=== PATIENT | female | born 1980 | race Caucasian/White ===

== ENCOUNTER 2021-01-11 08:35 | Outpatient (REF) | payer OTHER, SELFPAY ==
[2021-01-11 13:43] LABS: CT PCR NOT DETECTED (Not Detect.); NG PCR NOT DETECTED (Not Detect.)
[2021-01-12 08:41] LABS: BV Int Neg Control Negative (Negative); BV Int Pos Control Positive (Positive)
[2021-01-17 09:41] LABS: HPV 16 RNA DETECTED (NOT DETECTED); HPV mRNA E6/E7 rflx Detected (Not Detected)
== END 2021-01-11 08:36 | disposition home or self-care (01) ==
LOC: HO.LAB 08:35
PROVIDERS: PCP Internal Medicine; Visit Provider Advanced Practice Midwife
DX: Z30.432 Encounter for removal of intrauterine contraceptive device (principal); R10.2 Pelvic and perineal pain; R35.89 Other polyuria
CPT/HCPCS: 58301; 87480; 87491; 87510; 87591; 87624; 87625; 87660; 88142

== ENCOUNTER 2021-01-29 16:02 | Outpatient (REF) | payer OTHER, SELFPAY ==
--- NOTE | ~2021-01-29 | US_ITS ---
EXAMINATION: US PELVIS CLINICAL INFORMATION: Pelvic and perineal pain. COMPARISON: None. TECHNIQUE: Ultrasound of the pelvis is performed using both transabdominal and transvaginal transducers along with Doppler. Transvaginal imaging is performed due to inadequate visualization transabdominally. FINDINGS: Uterus: The uterus is anteverted and measures 9.1 cm in length, 5.4 cm in AP and 6.9 cm in transverse dimension. The double wall endometrial thickness is 0.78 mm. There is trace free fluid seen within the endometrial canal. The uterus is smooth in contour and has normal myometrial echogenicity. No visible fibroid. Adnexa: Both ovaries are visualized. There is normal color flow to the adnexa. There is no ovarian torsion. There is no pelvic ascites or fluid collection. Right ovary measures 2.9 x 2.0 x 1.7 cm and volume 5.4 mL. There is a solitary echogenic calcification in the right ovary. Left ovary measures 3.2 x 2.1 x 1.7 cm and volume 6.0 mL. There is an anechoic simple cyst measuring 1.2 x 0.8 x 1.1 cm. There is no free fluid in the cul-de-sac. US/US pelvic and transvaginal IMPRESSION: Simple cyst in the left ovary. Solitary calcification in the right ovary. Trace fluid seen within the endometrial canal.
== END 2021-01-29 16:03 | disposition home or self-care (01) ==
LOC: HO.US 16:02
PROVIDERS: Visit Provider Advanced Practice Midwife
DX: R10.2 Pelvic and perineal pain (principal)
CPT/HCPCS: 76830; 76856

== ENCOUNTER → 2021-02-05 11:17 | Outpatient (BNVA) | payer OTHER, SELFPAY | PROVIDERS: PCP Internal Medicine; Visit Provider Advanced Practice Midwife ==

== ENCOUNTER 2021-03-14 15:06 | Outpatient (REF) | payer OTHER, SELFPAY | END 2021-03-14 15:07 | disposition home or self-care (01) | LOC: HO.LAB 15:06 | PROVIDERS: PCP Internal Medicine; Visit Provider Obstetrics & Gynecology | DX: R87.610 Atypical squamous cells of undetermined significance on cytologic smear of cervix (ASC-US) (principal); R87.810 Cervical high risk human papillomavirus (HPV) DNA test positive | CPT/HCPCS: 57454; 88305; 88341; 88342; 88360 ==

== ENCOUNTER 2021-03-19 16:29 | Outpatient (REF) | payer OTHER, SELFPAY ==
--- NOTE | ~2021-03-19 | MM_ITS ---
EXAMINATION: MM SCREENING DIGITAL BREAST TOMOSYNTHESIS, BILATERAL CLINICAL INFORMATION: Screening. Asymptomatic. Age 41. No prior breast imaging. No known family history breast cancer. The lifetime risk of breast cancer based on the Tyrer-Cuzick Model is 7%. COMPARISON: None (current study represents initial baseline exam). TECHNIQUE: Digital breast tomosynthesis is performed in both the craniocaudal and mediolateral oblique views along with computer-aided detection (CAD). Synthesized 2D images are generated from the tomosynthesis. FINDINGS: There are scattered areas of fibroglandular density (ACR BI-RADS breast composition Category b). There is fine fibronodular parenchymal pattern with scattered benign asymmetries. Breast parenchymal composition borders on heterogeneously dense. There is no significant mass or architectural abnormality. No abnormal calcifications. The axilla and skin contours are unremarkable. MM/MM tomosynthesis screening BI IMPRESSION: No mammographic evidence of malignancy. ASSESSMENT: BI-RADS 2: Benign RECOMMENDATION: Routine annual mammography screening. This patient's information was entered into a reminder system with a target due date for their next mammogram.
== END 2021-03-19 16:30 | disposition home or self-care (01) ==
LOC: HO.MAMMO 16:29
PROVIDERS: PCP Internal Medicine; Visit Provider Advanced Practice Midwife
DX: Z12.31 Encounter for screening mammogram for malignant neoplasm of breast (principal)
CPT/HCPCS: 77063; 77067

== ENCOUNTER → 2021-03-26 11:19 | Outpatient (BNVA) | payer OTHER, SELFPAY | PROVIDERS: Visit Provider Obstetrics & Gynecology ==

== ENCOUNTER 2022-05-28 15:29 | Outpatient (REF) | payer OTHER, SELFPAY ==
[2022-05-29 10:26] LABS: CT PCR NOT DETECTED (Not Detect.); NG PCR NOT DETECTED (Not Detect.)
[2022-05-29 13:06] LABS: BV Int Neg Control Negative (Negative); BV Int Pos Control Positive (Positive)
== END 2022-05-28 15:30 | disposition home or self-care (01) ==
LOC: HO.LAB 15:29
PROVIDERS: Visit Provider Advanced Practice Midwife
DX: R10.2 Pelvic and perineal pain (principal); N85.2 Hypertrophy of uterus; Z85.41 Personal history of malignant neoplasm of cervix uteri; Z20.2 Contact with and (suspected) exposure to infections with a predominantly sexual mode of transmission
CPT/HCPCS: 0353U; 87480; 87510; 87660

== ENCOUNTER 2022-05-28 15:53 | Outpatient (REF) | payer OTHER, SELFPAY ==
[2022-06-01 08:54] LABS: HPV mRNA E6/E7 rflx Not Detected (Not Detected)
== END 2022-05-28 15:54 | disposition home or self-care (01) ==
LOC: HO.LNP 15:53
PROVIDERS: Visit Provider Advanced Practice Midwife
DX: Z01.419 Encounter for gynecological examination (general) (routine) without abnormal findings (principal)
CPT/HCPCS: 87624; 88142

== ENCOUNTER 2022-06-27 15:40 | Outpatient (REF) | payer OTHER, SELFPAY ==
--- NOTE | ~2022-06-27 | US_ITS ---
EXAMINATION: US PELVIS CLINICAL INFORMATION: Pelvic and perineal pain; the last menstrual period was on 06/13/2022. COMPARISON: Pelvic ultrasound dated 01/29/2021. TECHNIQUE: Ultrasound of the pelvis is performed using both transabdominal and transvaginal transducers along with Doppler. Transvaginal imaging is performed due to inadequate visualization transabdominally. FINDINGS: The uterus is of normal size and echogenicity, measuring 9.5 x 5.1 x 6.4 cm. A regular homogeneous endometrium is identified measuring 0.8 cm. Nabothian cysts are seen FIBROIDS: There is 1 fibroid seen. 1. Location: Upper rightward uterine body. Size: 1.0 x 0.7 x 0.9 cm. Fibroid characteristics: Heterogeneously hypoechoic. Both ovaries are of normal size and echogenicity. The right ovary measures 4.3 x 2.3 x 2.2 cm for a volume of 11.3 mL. Within the right ovary, a 1.4 cm dominant follicle is noted. The left ovary measures 4.1 x 1.7 x 1.6 cm for a volume of 5.8 mL. There are small left ovarian calcifications, the largest measuring 2 mm. There is no pelvic free fluid. No adnexal mass is seen. US/US pelvic and transvaginal IMPRESSION: 1. A small uterine fibroid is seen. 2. Nabothian cysts are seen within the cervix. 3. Within the right ovary, a 1.4 cm dominant follicle is noted. 4. Small left ovarian calcifications are noted, possibly psammomatous calcifications, sequela of prior infection/inflammation or calcifications related to dermoid tumor formation.
== END 2022-06-27 15:41 | disposition home or self-care (01) ==
LOC: HO.US 15:40
PROVIDERS: PCP Internal Medicine; Visit Provider Advanced Practice Midwife
DX: R10.2 Pelvic and perineal pain (principal); N85.2 Hypertrophy of uterus
CPT/HCPCS: 76830; 76856

== ENCOUNTER → 2022-07-03 14:57 | Outpatient (BNVA) | payer OTHER, SELFPAY | PROVIDERS: PCP Internal Medicine; Visit Provider Advanced Practice Midwife ==

== ENCOUNTER 2022-07-04 12:52 | Outpatient (REF) | payer OTHER, SELFPAY ==
[2022-07-06 17:19] LABS: CA-125 47 U/mL (<35)
== END 2022-07-04 12:53 | disposition home or self-care (01) ==
LOC: HO.LAB 12:52
PROVIDERS: PCP Internal Medicine; Visit Provider Advanced Practice Midwife
DX: D21.9 Benign neoplasm of connective and other soft tissue, unspecified (principal)
CPT/HCPCS: 36415; 86304

== ENCOUNTER 2022-09-05 08:37 | Outpatient (REF) | payer OTHER, SELFPAY ==
--- NOTE | ~2022-09-05 | MR_ITS ---
EXAMINATION: MRI PELVIS WITH AND WITHOUT CONTRAST CLINICAL INFORMATION: Reason for Exam N83.8 - Other noninflammatory disorders of ovary, fallopian tube and bro... COMPARISON: 06/27/2022 and 01/29/2021 TECHNIQUE: Multiple routine MRI sequences through the pelvis were obtained on a high-field 1.5 Sofia MRI before and after the uneventful administration of 5.5 mL of Gadavist gadolinium-based IV contrast. FINDINGS: UTERUS: The uterus is retroverted. The uterus measures 7.5 x 4.6 x 6.7 cm. The endometrial stripe measures up to 8 mm in thickness. There is thickening of the junctional zone up to 12 mm. Focal masslike area within the junctional zone at the anterior aspect measures 1.6 x 1.6 x 1.7 cm with mass effect on the endometrium. Possible small right posterior intramural fibroid measures 8 x 9 x 8 mm. CERVIX: Susceptibility artifact. VAGINA: Unremarkable. RIGHT OVARY: Unremarkable. LEFT OVARY: Unremarkable. KIDNEYS: Two normally positioned kidneys are seen. No hydronephrosis. BLADDER: Underdistended. PELVIC FREE FLUID: Small free fluid. LYMPH NODES: No bulky pelvic lymphadenopathy. MR/MR pelvis wo/w con IMPRESSION: Uterine adenomyosis. Possible focal adenomyoma anteriorly measuring 1.6 x 1.6 x 1.7 cm with mass effect on the endometrium.
== END 2022-09-05 08:38 | disposition home or self-care (01) ==
LOC: HO.MRI 08:37
PROVIDERS: PCP Internal Medicine; Visit Provider Advanced Practice Midwife
DX: N83.8 Other noninflammatory disorders of ovary, fallopian tube and broad ligament (principal)
CPT/HCPCS: 72197

== ENCOUNTER 2022-09-12 12:19 | Outpatient (AMB) | payer OTHER, SELFPAY ==
--- NOTE | 2022-09-12 12:19 | A.OFFVIS_ITS ---
Intake Intake Visit Reasons: TV ultrasound results/TV ok Per Natalia Intake Note: The patient agreed to use of a medical research tech during this encounter. Scribed for ALINA Munguia by Nohemy Zepeda medical research tech, on 09/12/2022 at 12:57 pm EST. Corporate Webmaster Required: No Allergies No Known Allergies Allergy (Verified 09/12/22 12:20) Is last menstrual period known: Yes Last menstrual period: 08/24/22 Post menopausal: No HPI HPI Comments History of Present Illness Details Doximity live video 12:57 pm - 1:08 pm. Phone Call due to Covid-19 Pandemic. Video was utilized. She presents via phone/live video to discuss Pelvis MRI regarding pelvic pain and calcification of left ovary. Seen by GYNE/Onc at [facility] this year for a cone bx, had repeat pap in -no notes back. Pt. is unsure is she follows up there again. Admits pelvic pain. Denies irregular bleeding. 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 COMPARISON: 06/27/2022 and 01/29/2021 TECHNIQUE: Multiple routine MRI sequences through the pelvis were obtained on a high-field 1.5 Sofia MRI before and after the uneventful administration of 5.5 mL of Gadavist gadolinium-based IV contrast. FINDINGS: UTERUS: The uterus is retroverted. The uterus measures 7.5 x 4.6 x 6.7 cm. The endometrial stripe measures up to 8 mm in thickness. There is thickening of the junctional zone up to 12 mm. Focal masslike area within the junctional zone at the anterior aspect measures 1.6 x 1.6 x 1.7 cm with mass effect on the endometrium. Possible small right posterior intramural fibroid measures 8 x 9 x 8 mm. CERVIX: Susceptibility artifact. VAGINA: Unremarkable. RIGHT OVARY: Unremarkable. LEFT OVARY: Unremarkable. KIDNEYS: Two normally positioned kidneys are seen.? No hydronephrosis. BLADDER: Underdistended. PELVIC FREE FLUID: Small free fluid. LYMPH NODES: No bulky pelvic lymphadenopathy. MR/MR pelvis wo/w con IMPRESSION: Uterine adenomyosis. Possible focal adenomyoma anteriorly measuring 1.6 x 1.6 x 1.7 cm with mass effect on the endometrium. ? Assessment & Plan Assessment & Plan (1) Encounter to discuss test results: Code(s): Z71.2 - Person consulting for explanation of examination or test findings Plan: Discussed: US findings of: Uterine adenomyosis. Possible focal adenomyoma anteriorly measuring 1.6 x 1.6 x 1.7 cm with mass effect on the endometrium. Release of records from Dr. Hawley last visit for pap smear results.notes from June/July.. Report any PMB/AUB. Pelvic pressure, bloating, or pain. Consult for surgical exploration verses expectant management offered. Expectant management follow up US in 3 months for findings noted above. Follow up appt. for plan of care. All of her questions and concerns were addressed to the best of my ability and shared decision making. She is agreeable to plan of care. (2) Pelvic pain in female: Code(s): R10.2 - Pelvic and perineal pain (3) Fibroid, uterine: Code(s): D25.9 - Leiomyoma of uterus, unspecified Telehealth Telehealth Location of provider rendering services: practice address Location of patient: address on file Patient Identification confirmed using: Name, : Yes Telehealth method: video Patient verbally consented to treatment: Yes Patient verbally consented to billing insurance company: Yes Patient informed of any privacy concerns related to visit: Yes Coding Level of Care Code Tele Est Pt Level 3 (75850) Diagnoses Encounter to discuss test results Z71.2 Pelvic pain in female R10.2 Fibroid, uterine D25.9
== END 2022-09-12 13:16 | disposition home or self-care (01) ==
LOC: HO.HWS 12:19
PROVIDERS: PCP Internal Medicine; Visit Provider Advanced Practice Midwife
DX: R10.2 Pelvic and perineal pain (principal); D25.9 Leiomyoma of uterus, unspecified; Z71.2 Person consulting for explanation of examination or test findings
CPT/HCPCS: 99213

== ENCOUNTER → 2022-09-12 12:19 | Outpatient (BNVA) | payer OTHER, SELFPAY | PROVIDERS: PCP Internal Medicine; Visit Provider Advanced Practice Midwife ==

== ENCOUNTER 2022-11-25 16:00 | Outpatient (REF) | payer OTHER, SELFPAY ==
--- NOTE | ~2022-11-25 | US_ITS ---
EXAMINATION: US PELVIS CLINICAL INFORMATION: Fibroid uterus. Follow-up calcification, question possible dermoid left side. COMPARISON: MRI pelvis 09/05/2022. Ultrasound pelvis 06/27/2022. TECHNIQUE: Ultrasound of the pelvis is performed using both transabdominal and transvaginal transducers along with Doppler. Transvaginal imaging is performed due to inadequate visualization transabdominally. FINDINGS: Uterus: The uterus is retroverted and measures 8.2 x 4.8 x 7.2 cm. Volume 148 mL. The double wall endometrial thickness is 8 mm. The uterus is smooth in contour and has heterogeneous myometrial echogenicity. Distinct fibroids are not visible today. Adnexa: Both ovaries are visualized. There is normal color flow to the adnexa. There is no ovarian torsion. There is no pelvic ascites or fluid collection. Right ovary measures 2.6 x 1.5 x 1.5 cm. Volume 3.1 mL. 5 mm shadowing calcification in the periphery of the right ovary appears unchanged and remains nonspecific. Left ovary measures 2.7 x 1.9 x 1.4 cm. Volume 3.8 mL. Small calcifications in the periphery of the left ovary appear unchanged and remain nonspecific. US/US pelvic and transvaginal IMPRESSION: Stable ovarian calcifications.
== END 2022-11-25 16:01 | disposition home or self-care (01) ==
LOC: HO.US 16:00
PROVIDERS: PCP Internal Medicine; Visit Provider Advanced Practice Midwife
DX: D25.9 Leiomyoma of uterus, unspecified (principal); N83.8 Other noninflammatory disorders of ovary, fallopian tube and broad ligament
CPT/HCPCS: 76830; 76856

== ENCOUNTER 2022-12-10 15:05 | Outpatient (AMB) | payer OTHER, SELFPAY ==
[2022-12-10 15:16] VITALS: BP 100/64; BMI 22.3
--- NOTE | 2022-12-10 15:16 | A.OFFVIS_ITS ---
Intake Vital Signs 12/10/22 15:16 Height 5 ft 1 in Weight 118 lb BMI 22.3 BP 100/64 Intake Visit Reasons: ultra sound follow up Intake Note: The patient agreed to use of a biomedical engineering technologist during this encounter. Scribed for ALINA Munguia by Nohemy Zepeda biomedical engineering technologist, on 12/10/2022 at 3:26 pm EST. Allergies No Known Allergies Allergy (Verified 12/10/22 15:16) Is last menstrual period known: Yes Last menstrual period: 12/06/22 HPI HPI Comments History of Present Illness Details She is here to discuss US results regarding uterine fibroid. Reports she is having heavy menses; 3/6 days with her last cycle. She has a follow up with her PCP tomorrow and prefers to do her labs there. 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 Follow-up calcification, question possible dermoid left side. COMPARISON: MRI pelvis 09/05/2022. Ultrasound pelvis 06/27/2022. TECHNIQUE: Ultrasound of the pelvis is performed using both transabdominal and transvaginal transducers along with Doppler. Transvaginal imaging is performed due to inadequate visualization transabdominally. FINDINGS: Uterus: The uterus is retroverted and measures 8.2 x 4.8 x 7.2 cm. Volume 148 mL. The double wall endometrial thickness is 8 mm. The uterus is smooth in contour and has heterogeneous myometrial echogenicity. Distinct fibroids are not visible today. Adnexa: Both ovaries are visualized. There is normal color flow to the adnexa. There is no ovarian torsion. There is no pelvic ascites or fluid collection. Right ovary measures 2.6 x 1.5 x 1.5 cm. Volume 3.1 mL. 5 mm shadowing calcification in the periphery of the right ovary appears unchanged and remains nonspecific. Left ovary measures 2.7 x 1.9 x 1.4 cm. Volume 3.8 mL. Small calcifications in the periphery of the left ovary appear unchanged and remain nonspecific. US/US pelvic and transvaginal IMPRESSION: Stable ovarian calcifications. Assessment & Plan Assessment & Plan (1) Encounter to discuss test results: Code(s): Z71.2 - Person consulting for explanation of examination or test findings Plan: Discussed: US findings of: Stable ovarian calcifications. If TSH & CBC lab work is done by PCP, forward lab results. If not RTO for lab work. Annual booked for 02/2023. All of her questions and concerns were addressed to the best of my ability and shared decision making. She is agreeable to plan of care. (2) Heavy menstrual bleeding: Code(s): N92.0 - Excessive and frequent menstruation with regular cycle Plan: Monitor periods, report any unscheduled bleeding, bleeding episodes less than 21 days apart or heavy prolonged menstrual bleeding. If abnormal bleeding pattern occurs, contact the office for possible EMB. The EMB purpose was explained to rule out atypia, hyperplasia and uterine cancer. (3) Calcification of ovary: Code(s): N83.8 - Other noninflammatory disorders of ovary, fallopian tube and broad ligament (4) Menorrhagia with regular cycle: Code(s): N92.0 - Excessive and frequent menstruation with regular cycle Orders: Orders Thyroid Stimulating Hormone Today N92.0 - Excessive and frequent menstruation with regular cycle, N92.1 - Excessive and frequent menstruation with irregular cycle Complete Blood Count no Diff Today N92.0 - Excessive and frequent menstruation with regular cycle Coding Level of Care Code Est Pt Level 3 (63040) Diagnoses Encounter to discuss test results Z71.2 Heavy menstrual bleeding N92.0 Calcification of ovary N83.8 Menorrhagia with regular cycle N92.0
== END 2022-12-10 15:34 | disposition home or self-care (01) ==
LOC: HO.HWS 15:05
PROVIDERS: PCP Internal Medicine; Visit Provider Advanced Practice Midwife
DX: Z71.2 Person consulting for explanation of examination or test findings (principal); N92.0 Excessive and frequent menstruation with regular cycle; N83.8 Other noninflammatory disorders of ovary, fallopian tube and broad ligament
CPT/HCPCS: 99213

== ENCOUNTER → 2022-12-10 15:05 | Outpatient (BNVA) | payer OTHER, SELFPAY | PROVIDERS: PCP Internal Medicine; Visit Provider Advanced Practice Midwife ==